=== PATIENT | male | born 1975 | race Caucasian/White ===

== ENCOUNTER 2017-07-06 18:22 | Emergency (ER) | payer MEDICAID, OTHER ==
[2017-07-06 18:40] VITALS: BP 154/79
[2017-07-06] MEDS ORDERED: ASPIRIN 81 MG TABLET, CHEWABLE PO ONE (19:53)
--- NOTE | 2017-07-06 19:54 | ER Document Report ---
ED Medical Screen (RME) - General Chief Complaint: Chest Pain Stated Complaint: CHEST PAIN Time Seen by Provider: 07/06/17 19:43 Notes: 42-year-old male here with complaints of midsternal chest pain nonradiating that has been ongoing episodically over the past 6 months with associated lightheadedness and diaphoresis. He is here today because it started approximately 12 hours ago while he was sitting down and it has been constant since then. He reports that these episodes usually do not last as long as it has today and this is why he is here. He denies shortness of breath. He has not followed up with his primary care physician regarding these symptoms. EXAM Clear to auscultation bilaterally Regular rate and rhythm TRAVEL OUTSIDE OF THE [place] IN LAST 30 DAYS: No - Related Data Allergies/Adverse Reactions: No Known Allergies Allergy (Verified 07/06/17 18:23) Past Medical History - Social History Frequency of alcohol use: None - Past Medical History Cardiac Medical History: Reports: Hx Hypertension Renal/ Medical History: Denies: Hx Peritoneal Dialysis Physical Exam - Vital signs Vitals: Temp Pulse Resp BP Pulse Ox 99.0 F 83 18 154/79 H 97 07/06/17 18:38 07/06/17 18:38 07/06/17 18:38 07/06/17 18:38 07/06/17 18:38 Course - Vital Signs Vital signs: Temp Pulse Resp BP Pulse Ox 99.0 F 83 18 154/79 H 97 07/06/17 18:38 07/06/17 18:38 07/06/17 18:38 07/06/17 18:38 07/06/17 18:38
--- NOTE | 2017-07-06 20:39 | RADIOLOGY REPORT (SQ) ---
EXAM DESCRIPTION: CHEST PA/LAT COMPLETED DATE/TIME: 07/06/2017 8:27 pm REASON FOR STUDY: CP COMPARISON: 11/26/2015 EXAM PARAMETERS: NUMBER OF VIEWS: two views TECHNIQUE: Digital Frontal and Lateral radiographic views of the chest acquired. RADIATION DOSE: NA LIMITATIONS: none FINDINGS: LUNGS AND PLEURA: No opacities, masses or pneumothorax. No pleural effusion. MEDIASTINUM AND HILAR STRUCTURES: No masses or contour abnormalities. HEART AND VASCULAR STRUCTURES: Heart normal size. No evidence for failure. BONES: No acute findings. HARDWARE: None in the chest. OTHER: No other significant finding. IMPRESSION: NO SIGNIFICANT RADIOGRAPHIC FINDING IN THE CHEST. TECHNICAL DOCUMENTATION: JOB ID: [id number] [employer]- All Rights Reserved
[2017-07-06 20:45] LABS: ANION GAP 16 (5-19); BLOOD UREA NITROGEN 13 mg/dL (7-20); CALCIUM 9.1 mg/dL (8.4-10.2); CARBON DIOXIDE 24 mmol/L (22-30); CHLORIDE 104 mmol/L (98-107); CREATININE RESULT 0.66 mg/dL (0.52-1.25); GLUCOSE 127 mg/dL (75-110); POTASSIUM 4.6 mmol/L (3.6-5.0); SODIUM 143.7 mmol/L (137-145)
[2017-07-06 20:58] LABS: APPEARANCE,URINE CLEAR; BILIRUBIN,URINE NEGATIVE (NEGATIVE); GLUCOSE, URINE NEGATIVE (NEGATIVE); KETONES,URINE NEGATIVE (NEGATIVE); LEUKOCYTE ESTERASE,URINE NEGATIVE (NEGATIVE); NITRITE,URINE NEGATIVE (NEGATIVE); PROTEIN,URINE NEGATIVE (NEGATIVE); URINE SPECIFIC GRAVITY 1.006; UROBILINOGEN,URINE NEGATIVE mg/dL (<2.0)
--- NOTE | 2017-07-06 21:49 | EKG REPORT ---
SEVERITY:- NORMAL ECG - SINUS RHYTHM : Confirmed by: Orlando Davis 06-Jul-2017 21:48:34
[2017-07-06 22:39] LABS: ABSOLUTE EOSINOPHILS # (AUTO) 0.2 10^3/uL (0.0-0.6); ABSOLUTE LYMPHOCYTES (AUTO) 3.9 10^3/uL (0.5-4.7); ABSOLUTE MONOCYTES (AUTO) 0.8 10^3/uL (0.1-1.4); BASOPHILS % (AUTO) 0.2 % (0-2); EOSINOPHILS % (AUTO) 2.2 % (0-6); HEMOGLOBIN 12.9 g/dL (13.5-17.0); HGB HCT DIFFERENCE -0.3; LYMPHOCYTES % (AUTO) 39.5 % (13-45); MEAN CORPUSCULAR HEMOGLOBIN 25.8 pg (27.0-33.4); MEAN CORPUSCULAR HGB CONC 33.1 g/dL (32.0-36.0); MEAN CORPUSCULAR VOLUME 78 fl (80-97); MONOCYTES % (AUTO) 7.7 % (3-13); RED BLOOD COUNT 5.01 10^6/uL (4.35-5.55); RED CELL DISTRIBUTION WIDTH 14.9 % (11.5-14.0); SEGMENTED NEUTROPHILS % (AUTO) 50.4 % (42-78); WHITE BLOOD COUNT 9.9 10^3/uL (4.0-10.5)
--- NOTE | 2017-07-06 22:56 | ER Document Report ---
ED General - General Chief Complaint: Chest Pain Stated Complaint: CHEST PAIN Time Seen by Provider: 07/06/17 19:43 TRAVEL OUTSIDE OF THE [place] IN LAST 30 DAYS: No - HPI Patient complains to provider of: Intermittent chest pain intermittent dizziness Notes: Patient coming in today complains intermittent chest pain intermittent dizziness. Patient states more concerned about dizziness. Patient states is been ongoing for many months. States symptoms are worse starting from earlier this morning. Patient states he thinks his dizziness is intermittent chest pains prior related to anxiety states also having a lot of stress at work. Upon my evaluation patient resting comfortably watching TV states that his symptoms basically resolved. Patient states chest pain throughout the whole chest and shortness of breath or any other associated etiologies. Patient states that his dizziness sometimes associated with ringing in his ear. Patient did have a stress test in October 2015 that was negative. Patient states since that time has not followed up with cardiology states he does have high blood pressure compliant with medications patient states he knows that he is obese recently joined a gym and has started working out. Denies fevers chills nausea vomiting abdominal pain. Denies any recent trauma or travel. - Related Data Allergies/Adverse Reactions: No Known Allergies Allergy (Verified 07/06/17 18:23) Past Medical History - Social History Smoking Status: Never Smoker Frequency of alcohol use: None Family History: Reviewed & Not Pertinent Patient has suicidal ideation: No Patient has homicidal ideation: No - Past Medical History Cardiac Medical History: Reports: Hx Hypertension Renal/ Medical History: Denies: Hx Peritoneal Dialysis Review of Systems - Review of Systems Constitutional: No symptoms reported EENT: No symptoms reported Cardiovascular: Chest pain, Dizziness Respiratory: No symptoms reported Gastrointestinal: No symptoms reported Genitourinary: No symptoms reported Male Genitourinary: No symptoms reported Musculoskeletal: No symptoms reported Skin: No symptoms reported Hematologic/Lymphatic: No symptoms reported Neurological/Psychological: No symptoms reported -: Yes All other systems reviewed and negative Physical Exam - Vital signs Vitals: Temp Pulse Resp BP Pulse Ox 99.0 F 83 18 154/79 H 97 07/06/17 18:38 07/06/17 18:38 07/06/17 18:38 07/06/17 18:38 07/06/17 18:38 Interpretation: Normal - General General appearance: Appears well, Alert - HEENT Head: Normocephalic, Atraumatic Eyes: Normal Conjunctiva: Normal Cornea: Normal Extraocular movements intact: Yes Eyelashes: Normal Pupils: PERRL Anterior chamber: Normal Fundascopic: Normal Ears: Normal External canal: Normal Tympanic membrane: Normal Pharynx: Normal Neck: Normal - Respiratory Respiratory status: No respiratory distress Chest status: Nontender Breath sounds: Normal Chest palpation: Normal - Cardiovascular Rhythm: Regular Heart sounds: Normal auscultation Murmur: No - Abdominal Inspection: Normal Distension: No distension Bowel sounds: Normal Tenderness: Nontender Organomegaly: No organomegaly - Back Back: Normal, Nontender - Extremities General upper extremity: Normal inspection, Nontender, Normal color, Normal ROM , Normal temperature General lower extremity: Normal inspection, Nontender, Normal color, Normal ROM , Normal temperature, Normal weight bearing. No: Subha's sign - Neurological Neuro grossly intact: Yes Cognition: Normal Orientation: AAOx4 [place] Coma Scale Eye Opening: Spontaneous [place] Coma Scale Verbal: Oriented [place] Coma Scale Motor: Obeys Commands [place] Coma Scale Total: 15 Speech: Normal Motor strength normal: LUE, RUE, LLE, RLE Sensory: Normal - Psychological Associated symptoms: Normal affect, Normal mood - Skin Skin Temperature: Warm Skin Moisture: Dry Skin Color: Normal Course - Re-evaluation Re-evalutation: 07/06/17 23:06 The patient has atypical chest pain as the patient's chest pain is not suggestive of pulmonary embolus, cardiac ischemia, aortic dissection, or other serious etiology. Given the extremely low risk of these diagnoses further testing and evaluation for these possibilities does not appear to be indicated at this time. The patient has been instructed to return if the symptoms worsen or change in any way. Unclear etiology for underlying dizziness. Ringing here could be underlying inflammation of the anterior. We will start the patient on Antivert encouraged patient follow-up with PCP also. Patient to follow-up dictionary editor provided. - Vital Signs Vital signs: Temp Pulse Resp BP Pulse Ox 99.0 F 83 19 154/79 H 97 07/06/17 18:38 07/06/17 18:38 07/06/17 22:21 07/06/17 18:38 07/06/17 22:21 - Laboratory Result Diagrams: 07/06/17 22:23 07/06/17 20:00 Laboratory results interpreted by me: 07/06/17 07/06/17 20:00 22:23 Hgb 12.9 L MCV 78 L MCH 25.8 L RDW 14.9 H Glucose 127 H Discharge - Discharge Clinical Impression: Chest pain of uncertain etiology, Dizziness Condition: Good Disposition: HOME, SELF-CARE Instructions: Chest Pain of Unclear Cause ([facility]), Dizziness ([facility]), Meclizine ( [facility]) Additional Instructions: Your physical examination tonight does not reveal any critical pathology. Cannot explain your dizziness or this intermittent chest pain. Your most recent stress test is negative. Your lab work and EKG here are negative as well. We will start you on Antivert to see if this would help out with her dizziness I would recommend following up with your primary care physician in 2- 3 weeks. Keep a record of these episodes and the events occurring around you when this happens. Also upon Your last visit and admission here to the hospital dictionary editor did recommend to establish yourself with a dictionary editor I will give you Dr. Clark's information. Return to the ER if any symptoms worsen. Prescriptions: Meclizine HCl [Antivert 25 mg Tablet] 25 mg PO TID PRN #21 tablet PRN Reason: Forms: Return to Work Referrals: JUDY WALLIS MD [ACTIVE STAFF] - Follow up as needed
== END 2017-07-06 23:04 | disposition home or self-care (01) ==
LOC: ER 18:22
DX: R07.9 Chest pain, unspecified (principal); R42 Dizziness and giddiness
CPT/HCPCS: 36415; 71020; 80048; 81001; 84484; 85025; 93005; 93010; 99285

== ENCOUNTER 2017-10-25 12:10 | Observation (INO) | payer SELFPAY ==
--- NOTE | 2017-10-25 14:23 | ER Document Report ---
ED Medical Screen (RME) <ALTON ROMO - Last Filed: 10/25/17 16:48> - General TRAVEL OUTSIDE OF THE [place] IN LAST 30 DAYS: No <SAVANNAH SANCHEZ - Last Filed: 10/25/17 19:49> - General Chief Complaint: Neck Pain >24hrs old Stated Complaint: DIZZINESS Time Seen by Provider: 10/25/17 14:05 Notes: 42-year-old male reports high blood pressure and pain in his neck. Radiates up into his neck. Has been told he has prediabetes. Was on some blood pressure meshing occasion but has recently stopped it. I have greeted and performed a rapid initial assessment of this patient. A comprehensive ED assessment and evaluation of the patient, analysis of test results and completion of the medical decision making process will be conducted by additional ED providers. (SAVANNAH SANCHEZ) - Related Data Allergies/Adverse Reactions: No Known Allergies Allergy (Verified 10/25/17 12:12) Past Medical History - Social History Chew tobacco use (# tins/day): Yes Frequency of alcohol use: None Drug Abuse: None - Past Medical History Cardiac Medical History: Reports: Hx Hypertension Renal/ Medical History: Denies: Hx Peritoneal Dialysis <SAVANNAH SANCHEZ - Last Filed: 10/25/17 19:49> Physical Exam - Vital signs Interpretation: Normal - General General appearance: Appears well, Alert - HEENT Head: Normocephalic, Atraumatic Eyes: Normal Pupils: PERRL - Respiratory Respiratory status: No respiratory distress Chest status: Nontender Breath sounds: Normal Chest palpation: Normal - Cardiovascular Rhythm: Regular Heart sounds: Normal auscultation Murmur: No - Abdominal Inspection: Normal Distension: No distension Bowel sounds: Normal Tenderness: Nontender Organomegaly: No organomegaly - Back Back: Normal, Nontender - Extremities General upper extremity: Normal inspection, Nontender, Normal color, Normal ROM , Normal temperature General lower extremity: Normal inspection, Nontender, Normal color, Normal ROM , Normal temperature, Normal weight bearing. No: Subha's sign - Neurological Neuro grossly intact: Yes Cognition: Normal Orientation: AAOx4 [place] Coma Scale Eye Opening: Spontaneous [place] Coma Scale Verbal: Oriented [place] Coma Scale Motor: Obeys Commands [place] Coma Scale Total: 15 Speech: Normal Motor strength normal: LUE, RUE, LLE, RLE Sensory: Normal - Psychological Associated symptoms: Normal affect, Normal mood - Skin Skin Temperature: Warm Skin Moisture: Dry Skin Color: Normal <SAVANNAH SANCHEZ - Last Filed: 10/25/17 19:49> - Vital signs Vitals: Temp Pulse Resp BP Pulse Ox 98.7 F 69 18 160/93 H 98 10/25/17 12:23 10/25/17 12:23 10/25/17 12:23 10/25/17 12:23 10/25/17 12:23 Course - Laboratory Result Diagrams: 10/25/17 14:35 10/25/17 14:35 <ALTON ROMO - Last Filed: 10/25/17 16:48> - Laboratory Result Diagrams: 10/25/17 14:35 10/25/17 14:35 <SAVANNAH SANCHEZ - Last Filed: 10/25/17 19:49> - Vital Signs Vital signs: Temp Pulse Resp BP Pulse Ox 98.0 F 94 18 150/88 H 99 10/25/17 16:47 10/25/17 18:44 10/25/17 12:25 10/25/17 18:44 10/25/17 16:47 - Laboratory Laboratory results interpreted by me: 10/25/17 10/25/17 14:35 14:35 MCV 78 L MCH 25.1 L RDW 15.2 H Total Protein 8.6 H Doctor's Discharge <ALTON ROMO - Last Filed: 10/25/17 16:48> <SAVANNAH SANCHEZ - Last Filed: 10/25/17 19:49> - Discharge Clinical Impression: Near syncope Condition: Good Disposition: ADMITTED OBSERVATION
[2017-10-25 15:07] LABS: ABSOLUTE EOSINOPHILS # (AUTO) 0.1 10^3/uL (0.0-0.6); ABSOLUTE LYMPHOCYTES (AUTO) 2.2 10^3/uL (0.5-4.7); ABSOLUTE MONOCYTES (AUTO) 0.4 10^3/uL (0.1-1.4); ABSOLUTE NEUT (AUTO) 6.3 10^3/uL (1.7-8.2); BASOPHILS % (AUTO) 0.2 % (0-2); EOSINOPHILS % (AUTO) 0.9 % (0-6); HEMATOCRIT 41.9 % (37.9-51.0); HEMOGLOBIN 13.5 g/dL (13.5-17.0); LYMPHOCYTES % (AUTO) 24.5 % (13-45); MEAN CORPUSCULAR HEMOGLOBIN 25.1 pg (27.0-33.4); MEAN CORPUSCULAR HGB CONC 32.2 g/dL (32.0-36.0); MEAN CORPUSCULAR VOLUME 78 fl (80-97); MONOCYTES % (AUTO) 4.8 % (3-13); PLATELET COUNT 328 10^3/uL (150-450); RED BLOOD COUNT 5.38 10^6/uL (4.35-5.55); RED CELL DISTRIBUTION WIDTH 15.2 % (11.5-14.0); SEGMENTED NEUTROPHILS % (AUTO) 69.6 % (42-78); TOTAL CELLS COUNTED % (AUTO) 100 %
[2017-10-25 15:15] LABS: COLOR,URINE STRAW
[2017-10-25 15:16] LABS: APPEARANCE,URINE CLEAR; BILIRUBIN,URINE NEGATIVE (NEGATIVE); GLUCOSE, URINE NEGATIVE (NEGATIVE); KETONES,URINE NEGATIVE (NEGATIVE); PROTEIN,URINE NEGATIVE (NEGATIVE); URINE SPECIFIC GRAVITY 1.016
[2017-10-25 15:17] LABS: LEUKOCYTE ESTERASE,URINE NEGATIVE (NEGATIVE); NITRITE,URINE NEGATIVE (NEGATIVE); UROBILINOGEN,URINE NEGATIVE mg/dL (<2.0)
[2017-10-25 15:31] LABS: ALANINE AMINOTRANSFERASE 41 U/L (21-72); ALBUMIN 4.5 g/dL (3.5-5.0); ALKALINE PHOSPHATASE 54 U/L (38-126); ANION GAP 10 (5-19); ASPARTATE AMINO TRANSFERASE 27 U/L (17-59); BILIRUBIN,DIRECT 0.3 mg/dL (0.0-0.4); BILIRUBIN,TOTAL 0.4 mg/dL (0.2-1.3); BLOOD UREA NITROGEN 11 mg/dL (7-20); CALCIUM 9.8 mg/dL (8.4-10.2); CARBON DIOXIDE 30 mmol/L (22-30); CHLORIDE 105 mmol/L (98-107); GLUCOSE 82 mg/dL (75-110); POTASSIUM 4.6 mmol/L (3.6-5.0); SODIUM 144.7 mmol/L (137-145); TOTAL PROTEIN 8.6 g/dL (6.3-8.2)
[2017-10-25 15:43] LABS: NT PRO BNP 67 pg/mL (<125)
[2017-10-25 15:44] LABS: TROPONIN I < 0.012 ng/mL
--- NOTE | 2017-10-25 17:18 | ER Document Report ---
ED General - General Chief Complaint: Neck Pain >24hrs old Stated Complaint: DIZZINESS Time Seen by Provider: 10/25/17 14:05 Mode of Arrival: Ambulatory Information source: Patient Notes: 42-year-old male with a history of hypertension presents with complaint of dizziness. Patient states that for the last 3 months he has been experiencing intermittent episodes of dizziness that he describes as feeling like he may faint. Today he states that he "feels off" and had more episodes than usual. Patient denies any associated chest pain, shortness of breath, diaphoresis, nausea, abdominal pain, back pain. He does complain of some numbness along the right side of his neck. He denies any injury to his neck. He denies being seen for this previously. He did undergo a stress test for his job 9 years ago which he reports to be normal. Patient also reports that he was taken off of his blood pressure medication at the end of 2016 by his primary care physician. He states since that time he has had these episodes of feeling lightheaded. He denies any history of IA, stroke. He denies any weakness, slurred speech, inability to ambulate. He denies any smoking, alcohol or drug use. TRAVEL OUTSIDE OF THE [place] IN LAST 30 DAYS: No - HPI Onset: Other - Intermittently for 3 months Onset/Duration: Gradual, Intermittent Quality of pain: No pain Severity: None Pain Level: Denies Associated symptoms: denies: Chest pain, Fever, Headache, Nausea, Vomiting, Sweating, Weakness Exacerbated by: Denies. denies: Supine, Sitting, Standing, Movement, Walking, Deep breathing Relieved by: Denies Similar symptoms previously: Yes Recently seen / treated by doctor: No - Related Data Allergies/Adverse Reactions: No Known Allergies Allergy (Verified 10/25/17 12:12) Past Medical History - General Information source: Patient - Social History Smoking Status: Never Smoker Chew tobacco use (# tins/day): Yes Frequency of alcohol use: None Drug Abuse: None Lives with: Family Family History: Reviewed & Not Pertinent Patient has suicidal ideation: No Patient has homicidal ideation: No - Past Medical History Cardiac Medical History: Reports: Hx Hypertension Renal/ Medical History: Denies: Hx Peritoneal Dialysis Review of Systems - Review of Systems Constitutional: See HPI. denies: Fever, Malaise, Weakness EENT: denies: Eye pain, Eye discharge, Blurred vision, Tearing, Double vision, Sinus pressure Cardiovascular: Lightheaded. denies: Chest pain, Palpitations, Heart racing Respiratory: denies: Cough Gastrointestinal: denies: Abdomen distended Genitourinary: denies: Dysuria Musculoskeletal: Other - right sided neck numbness Skin: No symptoms reported Neurological/Psychological: denies: Confusion, Sensory change, Loss of power, Lost consciousness, Headaches Physical Exam - Vital signs Vitals: Temp Pulse Resp BP Pulse Ox 98.7 F 69 18 160/93 H 98 10/25/17 12:23 10/25/17 12:23 10/25/17 12:23 10/25/17 12:23 10/25/17 12:23 Interpretation: Normal, Hypertensive - General General appearance: Appears well, Alert In distress: None - HEENT Head: Normocephalic, Atraumatic Eyes: Normal Extraocular movements intact: Yes Pupils: PERRL Pharynx: Normal - Respiratory Respiratory status: No respiratory distress Chest status: Nontender Breath sounds: Normal Chest palpation: Normal - Cardiovascular Rhythm: Regular Heart sounds: Normal auscultation Murmur: No Pulses: Normal: Radial, Dorsalis pedis - Abdominal Inspection: Normal Distension: No distension Bowel sounds: Normal Tenderness: Nontender Organomegaly: No organomegaly - Back Back: Normal, Nontender - Neurological Neuro grossly intact: Yes Cognition: Normal Orientation: AAOx4 Hattie Coma Scale Eye Opening: Spontaneous [place] Coma Scale Verbal: Oriented [place] Coma Scale Motor: Obeys Commands Hattie Coma Scale Total: 15 Speech: Normal Cranial nerves: Normal Cerebellar coordination: Normal. No: Gait ataxia, Heel-thibodeaux, Finger-nose rhombey, Rapid alt. movements, Truncal ataxia Motor strength normal: LUE, RUE, LLE, RLE Additional motor exam normals: Equal bridge attacher, Other - Patient ambulated independently and without difficulty. He was able to perform heel to toe without difficulty. Babinski reflex: Normal (flexor plantar) Sensory: Normal Course - Re-evaluation Re-evalutation: 10/25/17 17:44 Spoke to patient regarding admission for multiple episodes of near syncope. He is agreeable. Hospitalist has accepted. hospitalist is requesting chest x-ray and orthostatic vital signs. 10/26/17 00:11 42-year-old male with a history of hypertension presents with complaint of multiple episodes of near syncope. On arrival vitals were reviewed. Patient is mildly hypertensive. He does not appear toxic or dehydrated. He is in no acute distress. Patient has a normal physical and neurologic exam and is able to ambulate without difficulty. He denies any associated chest pain, shortness of breath, diaphoresis. Patient's neck numbness is not reproducible on my exam. Because of the patient's history of obesity and hypertension admission was recommended for further workup near syncope. Patient is agreeable to admission. Laboratory 10/25/17 10/25/17 10/25/17 14:35 14:35 14:35 WBC 9.0 RBC 5.38 Hgb 13.5 Hct 41.9 MCV 78 L MCH 25.1 L MCHC 32.2 RDW 15.2 H Plt Count 328 Seg Neutrophils % 69.6 Lymphocytes % 24.5 Monocytes % 4.8 Eosinophils % 0.9 Basophils % 0.2 Absolute Neutrophils 6.3 Absolute Lymphocytes 2.2 Absolute Monocytes 0.4 Absolute Eosinophils 0.1 Absolute Basophils 0.0 Sodium 144.7 Potassium 4.6 Chloride 105 Carbon Dioxide 30 Anion Gap 10 BUN 11 Creatinine 0.66 Est GFR ( Amer) > 60 Est GFR (Non-Af Amer) > 60 Glucose 82 Hemoglobin A1c % 5.7 Calcium 9.8 Magnesium Total Bilirubin 0.4 Direct Bilirubin 0.3 Neonat Total Bilirubin Not Reportable Neonat Direct Bilirubin Not Reportable Neonat Indirect Bili Not Reportable AST 27 ALT 41 Alkaline Phosphatase 54 CK-MB (CK-2) Troponin I NT-Pro-B Natriuret Pep Total Protein 8.6 H Albumin 4.5 Urine Color Urine Appearance Urine pH Ur Specific [place] Urine Protein Urine Glucose (UA) Urine Ketones Urine Blood Urine Nitrite Urine Bilirubin Urine Urobilinogen Ur Leukocyte Esterase Urine WBC (Auto) Urine RBC (Auto) Squamous Epi Cells Auto Urine Mucus (Auto) Urine Ascorbic Acid 10/25/17 10/25/17 10/25/17 14:35 14:35 14:35 WBC RBC Hgb Hct MCV MCH MCHC RDW Plt Count Seg Neutrophils % Lymphocytes % Monocytes % Eosinophils % Basophils % Absolute Neutrophils Absolute Lymphocytes Absolute Monocytes Absolute Eosinophils Absolute Basophils Sodium Potassium Chloride Carbon Dioxide Anion Gap BUN Creatinine Est GFR ( Amer) Est GFR (Non-Af Amer) Glucose Hemoglobin A1c % Calcium Magnesium 1.8 Total Bilirubin Direct Bilirubin Neonat Total Bilirubin Neonat Direct Bilirubin Neonat Indirect Bili AST ALT Alkaline Phosphatase CK-MB (CK-2) Troponin I < 0.012 NT-Pro-B Natriuret Pep 67 Total Protein Albumin Urine Color STRAW Urine Appearance CLEAR Urine pH 8.0 Ur Specific [place] 1.016 Urine Protein NEGATIVE Urine Glucose (UA) NEGATIVE Urine Ketones NEGATIVE Urine Blood NEGATIVE Urine Nitrite NEGATIVE Urine Bilirubin NEGATIVE Urine Urobilinogen NEGATIVE Ur Leukocyte Esterase NEGATIVE Urine WBC (Auto) 1 Urine RBC (Auto) 1 Squamous Epi Cells Auto <1 Urine Mucus (Auto) RARE Urine Ascorbic Acid NEGATIVE 10/25/17 20:30 WBC RBC Hgb Hct MCV MCH MCHC RDW Plt Count Seg Neutrophils % Lymphocytes % Monocytes % Eosinophils % Basophils % Absolute Neutrophils Absolute Lymphocytes Absolute Monocytes Absolute Eosinophils Absolute Basophils Sodium Potassium Chloride Carbon Dioxide Anion Gap BUN Creatinine Est GFR ( Amer) Est GFR (Non-Af Amer) Glucose Hemoglobin A1c % Calcium Magnesium Total Bilirubin Direct Bilirubin Neonat Total Bilirubin Neonat Direct Bilirubin Neonat Indirect Bili AST ALT Alkaline Phosphatase CK-MB (CK-2) 0.47 Troponin I < 0.012 NT-Pro-B Natriuret Pep Total Protein Albumin Urine Color Urine Appearance Urine pH Ur Specific [place] Urine Protein Urine Glucose (UA) Urine Ketones Urine Blood Urine Nitrite Urine Bilirubin Urine Urobilinogen Ur Leukocyte Esterase Urine WBC (Auto) Urine RBC (Auto) Squamous Epi Cells Auto Urine Mucus (Auto) Urine Ascorbic Acid Chest X-Ray 10/25/17 17:40 IMPRESSION: NO SIGNIFICANT RADIOGRAPHIC FINDING IN THE CHEST. - Vital Signs Vital signs: Temp Pulse Resp BP Pulse Ox 98.5 F 66 18 111/71 98 10/25/17 21:04 10/25/17 21:04 10/25/17 21:04 10/25/17 21:04 10/25/17 21:04 - Laboratory Result Diagrams: 10/25/17 14:35 10/25/17 14:35 Laboratory results interpreted by me: 10/25/17 10/25/17 14:35 14:35 MCV 78 L MCH 25.1 L RDW 15.2 H Total Protein 8.6 H - Diagnostic Test Radiology reviewed: Image reviewed - EKG Interpretation by Nh EKG shows normal: Sinus rhythm Rate: Normal Rhythm: NSR When compared to previous EKG there are: No significant change Discharge - Discharge Clinical Impression: Near syncope Condition: Good Disposition: ADMITTED OBSERVATION Admitting Provider: Hospitalist Unit Admitted: IMCU
--- NOTE | 2017-10-25 18:13 | RADIOLOGY REPORT (SQ) ---
EXAM DESCRIPTION: CHEST PA/LAT COMPLETED DATE/TIME: 10/25/2017 6:05 pm REASON FOR STUDY: near syncope COMPARISON: 07/06/2017 EXAM PARAMETERS: NUMBER OF VIEWS: two views TECHNIQUE: Digital Frontal and Lateral radiographic views of the chest acquired. RADIATION DOSE: NA LIMITATIONS: none FINDINGS: LUNGS AND PLEURA: No opacities, masses or pneumothorax. No pleural effusion. MEDIASTINUM AND HILAR STRUCTURES: No masses or contour abnormalities. HEART AND VASCULAR STRUCTURES: Heart normal size. No evidence for failure. BONES: No acute findings. HARDWARE: None in the chest. OTHER: No other significant finding. IMPRESSION: NO SIGNIFICANT RADIOGRAPHIC FINDING IN THE CHEST. TECHNICAL DOCUMENTATION: JOB ID: [id number] [employer]- All Rights Reserved Reading location - IP/workstation name: [email or web address]
--- NOTE | 2017-10-25 18:17 | EKG REPORT ---
SEVERITY:- BORDERLINE ECG - SINUS RHYTHM PROBABLE LEFT ATRIAL ABNORMALITY : Confirmed by: Aki Chun MD 25-Oct-2017 18:16:05
[2017-10-25] MEDS ORDERED: DEXTROSE 50%-WATER 25 GM/50 ML DISP.SYRIN IV PRN ×2 (18:55)
[2017-10-25] MEDS ORDERED: GLUCAGON,HUMAN RECOMB 1 MG INJ SUBCUT PRN (18:55)
[2017-10-25] MEDS ORDERED: ACETAMINOPHEN 325 MG TABLET PO PRN (18:55)
[2017-10-25] MEDS ORDERED: DEXTROSE 40% GEL 15 GM TUBE PO PRN ×2 (18:55)
--- NOTE | 2017-10-25 19:19 | PDOC H&P ---
History of Present Illness Admission Date/PCP: 10/25/17 18:20 LOBITO ROBLES MD History of Present Illness: JONNY LI is a 42 year old male who is obese, his past medical history includes hypertension which improved with diet and exercise and he was taken off his blood pressure medications approximately a year ago. He presents to the ER today complaining of presyncope for the past few weeks. Denies chest pain, or syncope. Home meds: Steroid cream for psoriasis Melatonin Tylenol prn Past Medical History Cardiac Medical History: Reports: Hypertension Social History Lives with: Family Smoking Status: Never Smoker Frequency of Alcohol Use: Rare Hx Recreational Drug Use: No Hx Prescription Drug Abuse: No Family History Family History: CAD Parental Family History Reviewed: Yes Children Family History Reviewed: Yes Sibling(s) Family History Reviewed.: Yes Medication/Allergy Home Medications: No Home Medications 10/25/17 Allergies/Adverse Reactions: No Known Allergies Allergy (Verified 10/25/17 12:12) Review of Systems Constitutional: ABSENT: fever(s) Eyes: ABSENT: visual disturbances Ears: ABSENT: hearing changes Nose, Mouth, and Throat: ABSENT: sore throat Cardiovascular: ABSENT: dyspnea on exertion, edema, orthropnea, palpitations Gastrointestinal: ABSENT: heartburn Genitourinary: ABSENT: dysuria Musculoskeletal: ABSENT: joint swelling Neurological: ABSENT: focal weakness Psychiatric: ABSENT: hallucinations Endocrine: ABSENT: heat intolerance Physical Exam Vital Signs: Temp Pulse Resp BP Pulse Ox 98.0 F 94 18 150/88 H 99 10/25/17 16:47 10/25/17 18:44 10/25/17 12:25 10/25/17 18:44 10/25/17 16:47 General appearance: PRESENT: no acute distress, morbidly obese Head exam: PRESENT: atraumatic, normocephalic Ear exam: PRESENT: normal external ear exam Mouth exam: PRESENT: moist, neck supple Neck exam: ABSENT: tenderness, tracheal deviation Respiratory exam: PRESENT: clear to auscultation oscar, unlabored. ABSENT: wheezes Cardiovascular exam: PRESENT: RRR GI/Abdominal exam: PRESENT: normal bowel sounds, soft. ABSENT: tenderness Rectal exam: PRESENT: deferred Neurological exam: PRESENT: alert, awake, oriented to person, oriented to place , oriented to time Psychiatric exam: PRESENT: normal mood Results Impressions: Chest X-Ray 10/25/17 17:40 IMPRESSION: NO SIGNIFICANT RADIOGRAPHIC FINDING IN THE CHEST. Assessment & Plan - Diagnosis (1) Near syncope Is this a current diagnosis for this admission?: Yes Plan: Telemetry, cardiac enzymes stress test in the am, echocardiogram. orthostatic BP normal (2) Hypertension Qualifiers: Hypertension type: essential hypertension Qualified Code(s): I10 - Essential (primary) hypertension Is this a current diagnosis for this admission?: Yes Plan: Monitor, start antihypertensives in am (3) Morbid obesity Is this a current diagnosis for this admission?: Yes - Time Time Spent: 30 to 50 Minutes
[2017-10-25 21:12] LABS: CREATINE KINASE MB 0.47 ng/mL (<4.55)
[2017-10-25 21:19] LABS: TROPONIN I < 0.012 ng/mL
[2017-10-26 03:28] LABS: CREATINE KINASE MB 0.45 ng/mL (<4.55)
[2017-10-26 03:38] LABS: TROPONIN I < 0.012 ng/mL
[2017-10-26 10:42] LABS: CHOLESTEROL 202.44 mg/dL (0-200); PHOSPHORUS 3.9 mg/dL (2.5-4.5); TRIGLYCERIDES 124 mg/dL (<150)
[2017-10-26 10:53] LABS: DIRECT LDL 117 mg/dL (<100); TROPONIN I < 0.012 ng/mL
[2017-10-26 12:55] LABS: URINE AMPHETAMINES SCREEN NEGATIVE; URINE BARBITURATES SCREEN NEGATIVE; URINE BENZODIAZEPINES SCREEN NEGATIVE; URINE COCAINE SCREEN NEGATIVE; URINE MARIJUANA (THC) SCREEN NEGATIVE; URINE METHADONE SCREEN NEGATIVE; URINE PHENCYCLIDINE SCREEN NEGATIVE
[2017-10-26 16:53] VITALS: BP 123/77
--- NOTE | 2017-10-26 17:46 | XCELERA REPORT ---
[address] [address] Transthoracic Echocardiogram Report Name: JONNY LI Age: 42 yrs Gender: Male : 1975 Patient Status: Inpatient Patient Location: [address] [place] [address] Study Date: 10/26/2017 12:36 PM Height: 71 in Weight: 359 lb BSA: 2.7 m2 Procedure: A complete two-dimensional transthoracic echocardiogram was performed (2D, M-mode, spectral and color flow Doppler). The study was technically difficult with many images being suboptimal in quality. Reason For Study: presyncope Ordering Physician: TOMMY HELM Performed By: Roxi Milligan Interpretation Summary The left ventricular ejection fraction is normal. There is borderline concentric left ventricular hypertrophy. The left ventricle is grossly normal size. Doppler measurements suggest normal left ventricular diastolic function Wall motion cannot be accurately commented on, but no definite regional wall motion abnormalities noted. Borderline right ventricular enlargement. The right ventricular systolic function is normal. The left atrium is mildly dilated. The right atrium is normal in size There is a trace amount of mitral regurgitation There is no mitral valve stenosis. No aortic regurgitation is present. There is no aortic valve stenosis There is no tricuspid stenosis. No tricuspid regurgitation. The aortic root is not well visualized but is probably normal size. The inferior vena cava was not well visualized There is no pericardial effusion. MMode/2D Measurements & Calculations RVDd: 3.0 cm LVIDd: 5.7 cmFS: 33.0 % Ao root diam: 3.5 cm IVSd: 0.98 cm LVIDs: 3.8 cmEDV(Teich): 162.2 ml LVPWd: 1.0 cmESV(Teich): 63.5 ml Ao root area: 9.8 cm2 EF(Teich): 60.9 % LA dimension: 4.1 cm LVOT diam: 2.4 cm LVOT area: 4.5 cm2 Doppler Measurements & Calculations MV E max oj: MV P1/2t max oj: Ao V2 max: LV V1 max P.3 cm/sec 84.3 cm/sec 156.4 cm/sec 4.2 mmHg MV A max oj: MV P1/2t: 71.2 msec Ao max PG: LV V1 max: 69.9 cm/sec MVA(P1/2t): 3.1 cm2 9.8 mmHg 102.8 cm/sec MV E/A: 1.2 MV dec slope: LIZANDRO(V,D): 2.9 cm2 347.1 cm/sec2 PA V2 max: 108.6 cm/sec PA max P.7 mmHg Left Ventricle The left ventricle is grossly normal size. There is borderline concentric left ventricular hypertrophy. The left ventricular ejection fraction is normal. Doppler measurements suggest normal left ventricular diastolic function. Wall motion cannot be accurately commented on, but no definite regional wall motion abnormalities noted. Right Ventricle Borderline right ventricular enlargement. There is normal right ventricular wall thickness. The right ventricular systolic function is normal. Atria The right atrium is normal in size. The left atrium is mildly dilated. Interarterial septum not well visualized and not well dopplered. Cannot comment on ASD/PFO presence. Mitral Valve The mitral valve is grossly normal. There is no mitral valve stenosis. There is a trace amount of mitral regurgitation. Aortic Valve The aortic valve is grossly normal. There is no aortic valve stenosis. No aortic regurgitation is present. Tricuspid Valve The tricuspid valve is not well visualized, but is grossly normal. There is no tricuspid stenosis. No tricuspid regurgitation. Pulmonic Valve The pulmonic valve is not well visualized. Great Vessels The aortic root is not well visualized but is probably normal size. The inferior vena cava was not well visualized. Effusions There is no pericardial effusion. : VOLODYMYR NOVEMBER > Orlando Davis
--- NOTE | 2017-10-26 18:30 | PDOC DISCHARGE SUMMARY ---
General - Admit/Disc Date/PCP Admission Date/Primary Care Provider: 10/25/17 18:20 LOBITO ROBLES MD Discharge Date: 10/26/17 - Discharge Diagnosis (1) Near syncope Is this a current diagnosis for this admission?: Yes Summary: Normal orthostatic BP, normal cardiac enzymes. Echo within normal limits. Stress test as outpatient. Follow up PCP in 1 week (2) Hypertension Is this a current diagnosis for this admission?: Yes Summary: BP acceptable. Instructed to monitor BP at home and follow up with PCP (3) Morbid obesity Is this a current diagnosis for this admission?: Yes Summary: Calorie control and exercise. - Additional Information Resuscitation Status: Full Code Discharge Diet: Cardiac Discharge Activity: Activity As Tolerated Home Medications: No Home Medications 10/25/17 History of Present Illness History of Present Illness: JONNY LI is a 42 year old male who is obese, his past medical history includes hypertension which improved with diet and exercise and he was taken off his blood pressure medications approximately a year ago. He presents to the ER today complaining of presyncope for the past few weeks. Denies chest pain, or syncope. Admits to a lot of stress at work No fever/ chills/cough/ vomiting/diarrhea Home meds: Steroid cream for psoriasis Melatonin Tylenol prn Cardiac enzymes, EKG, echo, orthostatic BP normal. Ok for discharge. Feeling better. Stress test as outpatient. Physical Exam Vital Signs: Temp Pulse Resp BP Pulse Ox 97.5 F 87 16 123/77 98 10/26/17 16:50 10/26/17 16:50 10/26/17 16:50 10/26/17 16:50 10/26/17 16:50 Intake & Output 10/25/17 10/26/17 10/27/17 06:59 06:59 06:59 Intake Total 572 442 Output Total 275 Balance 572 167 Weight 162.84 kg General appearance: PRESENT: no acute distress, morbidly obese Ear exam: PRESENT: normal external ear exam Respiratory exam: PRESENT: clear to auscultation oscar, unlabored Cardiovascular exam: PRESENT: RRR Results Laboratory Results: 10/26/17 10/26/17 09:29 09:29 Phosphorus 3.9 Magnesium 1.8 Triglycerides 124 Cholesterol 202.44 H LDL Cholesterol Direct 117 H VLDL Cholesterol 25.0 HDL Cholesterol 47 TSH 1.31 10/25/17 10/26/17 10/26/17 20:30 02:45 09:29 CK-MB (CK-2) 0.47 0.45 0.50 Troponin I < 0.012 < 0.012 < 0.012 Impressions: Chest X-Ray 10/25/17 17:40 IMPRESSION: NO SIGNIFICANT RADIOGRAPHIC FINDING IN THE CHEST. Qualifiers - * PATEINT BEING DISCHARGED WITH ANY OF THE FOLLOWING DIAGNOSIS?: No Plan Time Spent: Greater than 30 Minutes
== END 2017-10-26 18:55 | disposition home or self-care (01) ==
LOC: ER 12:10 → EH 18:20 → 5 20:35
PROVIDERS: ADMIT Internal Medicine; ATTEND Internal Medicine
DX: R42 Dizziness and giddiness (principal); I10 Essential (primary) hypertension; E66.01 Morbid (severe) obesity due to excess calories
CPT/HCPCS: 93005; 99285; 36415 ×2; 82553 ×2; 83735 ×2; 84100; 84443; 85025; 80053; 81001; 84484 ×2; 80307; 83036 ×2; 80061; 83880; 93306; 71046; 93010; G0378 ×3

== ENCOUNTER 2019-04-22 21:43 | Emergency (ER) | payer SELFPAY ==
[2019-04-22] MEDS ORDERED: ASPIRIN 81 MG TABLET, CHEWABLE PO ONE (22:11)
--- NOTE | 2019-04-22 22:13 | ER Document Report ---
ED Medical Screen (RME) - General Chief Complaint: Chest Pain > 30 Stated Complaint: CHEST PAIN,DIZZINESS Time Seen by Provider: 04/22/19 22:09 Primary Care Provider: LOBITO ROBLES MD [Primary Care Provider] - Follow up as needed Mode of Arrival: Ambulatory Information source: Patient Notes: This 43-year-old male presents emergency department with chest pain since last Sunday. Reports he is getting worse he can hardly sleep last night reports he been sweating. Patient does have a history of high blood pressure but he lost weight when off his meds recently he is gained weight back. He also reports that he has been working out. Reports chest wall was tender to palpate. Patient reports this chest pain is different from pain from working out. Denies history of cardiac disease denies diabetes. EKG sinus rhythm. I have greeted and performed a rapid initial assessment of this patient. A comprehensive ED assessment and evaluation of the patient, analysis of test results and completion of the medical decision making process will be conducted by additional ED providers. Dictation of this chart was performed using voice recognition software; ther efore, there may be some unintended grammatical errors. TRAVEL OUTSIDE OF THE [place] IN LAST 30 DAYS: No - Related Data Allergies/Adverse Reactions: No Known Allergies Allergy (Verified 10/25/17 12:12) Past Medical History - Social History Chew tobacco use (# tins/day): No Frequency of alcohol use: Rare Drug Abuse: Marijuana - Past Medical History Cardiac Medical History: Reports: Hx Hypertension Renal/ Medical History: Denies: Hx Peritoneal Dialysis Psychiatric Medical History: Denies: Hx Depression - Immunizations History of Influenza Vaccine for 04/2017 - 09/2017 Season: Refused Physical Exam - Vital signs Vitals: Temp Pulse Resp BP Pulse Ox 99.1 F 73 16 135/84 H 98 04/22/19 22:01 04/22/19 22:01 04/22/19 22:01 04/22/19 22:01 04/22/19 22:01 Course - Vital Signs Vital signs: Temp Pulse Resp BP Pulse Ox 99.1 F 73 16 135/84 H 98 04/22/19 22:01 04/22/19 22:01 04/22/19 22:01 04/22/19 22:01 04/22/19 22:01 Doctor's Discharge - Discharge Referrals: LOBITO ROBLES MD [Primary Care Provider] - Follow up as needed
[2019-04-22 22:45] LABS: ABSOLUTE EOSINOPHILS # (AUTO) 0.1 10^3/uL (0.0-0.6); ABSOLUTE LYMPHOCYTES (AUTO) 3.1 10^3/uL (0.5-4.7); ABSOLUTE MONOCYTES (AUTO) 0.7 10^3/uL (0.1-1.4); BASOPHILS % (AUTO) 0.3 % (0-2); EOSINOPHILS % (AUTO) 1.7 % (0-6); HEMATOCRIT 40.3 % (37.9-51.0); HEMOGLOBIN 13.2 g/dL (13.5-17.0); LYMPHOCYTES % (AUTO) 34.4 % (13-45); MEAN CORPUSCULAR HEMOGLOBIN 25.6 pg (27.0-33.4); MEAN CORPUSCULAR HGB CONC 32.7 g/dL (32.0-36.0); MEAN CORPUSCULAR VOLUME 78 fl (80-97); MONOCYTES % (AUTO) 7.4 % (3-13); PLATELET COUNT 317 10^3/uL (150-450); RED BLOOD COUNT 5.14 10^6/uL (4.35-5.55); RED CELL DISTRIBUTION WIDTH 14.9 % (11.5-14.0); SEGMENTED NEUTROPHILS % (AUTO) 56.2 % (42-78); TOTAL CELLS COUNTED % (AUTO) 100 %; WHITE BLOOD COUNT 8.9 10^3/uL (4.0-10.5)
--- NOTE | 2019-04-22 22:56 | RADIOLOGY REPORT (SQ) ---
XR CHEST 2 VIEWS CLINICAL STATEMENT: cp COMPARISON: 10/25/2017 FINDINGS: Cardiomediastinal silhouette is within normal limits. There is no focal lung consolidation or pleural effusion. No evidence of pulmonary edema or pneumothorax. IMPRESSION: No acute cardiopulmonary disease.
[2019-04-22 22:57] LABS: ALBUMIN 4.4 g/dL (3.5-5.0); ALKALINE PHOSPHATASE 60 U/L (38-126); ANION GAP 8 (5-19); ASPARTATE AMINO TRANSFERASE 33 U/L (17-59); BILIRUBIN,DIRECT 0.1 mg/dL (0.0-0.4); BILIRUBIN,TOTAL 0.4 mg/dL (0.2-1.3); BLOOD UREA NITROGEN 13 mg/dL (7-20); CALCIUM 9.4 mg/dL (8.4-10.2); CARBON DIOXIDE 30 mmol/L (22-30); CHLORIDE 104 mmol/L (98-107); CREATINE KINASE 156 U/L (55-170); GLUCOSE 90 mg/dL (75-110)
[2019-04-22 23:08] LABS: TROPONIN I < 0.012 ng/mL
--- NOTE | 2019-04-23 00:14 | ER Document Report ---
Doctor's Note Notes: 04/23/19 00:13 I picked up patient's chart but nurse states patient never answered when she called in the waiting room. Apparently patient eloped after he was seen at triage by the advanced advanced practice provider. His EKG does not show any acute changes. His chest x-ray is unremarkable. His lab work also shows no significa nt acute abnormalities.
[2019-04-23] MEDS ORDERED: ASPIRIN 81 MG TABLET, CHEWABLE ONE (00:41)
--- NOTE | 2019-04-23 00:41 | ER Document Report ---
ED Cardiac - General Chief Complaint: Chest Pain > 30 Stated Complaint: CHEST PAIN,DIZZINESS Time Seen by Provider: 04/22/19 22:09 Primary Care Provider: LOBITO ROBLES MD [Primary Care Provider] - Follow up as needed Mode of Arrival: Ambulatory Information source: Patient TRAVEL OUTSIDE OF THE [place] IN LAST 30 DAYS: No - HPI Notes: Patient comes in complaining of chest pain. He states it radiates across his chest. Is mild. It is been constant for 6 days. Nothing is made it better or worse. He states he did recently start a new exercise program and the pain started after this. No shortness of breath. No nausea. No sweating. He states he had a previous cardiac stress test "years ago" that was normal. No recent evaluations. - Related Data Allergies/Adverse Reactions: No Known Allergies Allergy (Verified 10/25/17 12:12) Past Medical History - General Information source: Patient - Social History Smoking Status: Never Smoker Chew tobacco use (# tins/day): No Frequency of alcohol use: Rare Drug Abuse: Marijuana Family History: Reviewed & Not Pertinent Patient has suicidal ideation: No Patient has homicidal ideation: No - Past Medical History Cardiac Medical History: Reports: Hx Hypertension Renal/ Medical History: Denies: Hx Peritoneal Dialysis Psychiatric Medical History: Denies: Hx Depression Review of Systems - Review of Systems Constitutional: denies: Chills, Fever Cardiovascular: Chest pain. denies: Palpitations Respiratory: denies: Cough, Short of breath Gastrointestinal: denies: Diarrhea, Vomiting -: Yes All other systems reviewed and negative Physical Exam - Vital signs Vitals: Temp Pulse Resp BP Pulse Ox 99.1 F 73 16 135/84 H 98 04/22/19 22:01 04/22/19 22:01 04/22/19 22:01 04/22/19 22:01 04/22/19 22:01 Interpretation: Normal - General General appearance: Appears well, Alert - HEENT Head: Normocephalic, Atraumatic Eyes: Normal Pupils: PERRL - Respiratory Respiratory status: No respiratory distress Chest status: Nontender Breath sounds: Normal Chest palpation: Normal - Cardiovascular Rhythm: Regular Heart sounds: Normal auscultation Murmur: No - Abdominal Inspection: Normal Distension: No distension Bowel sounds: Normal Tenderness: Nontender Organomegaly: No organomegaly - Back Back: Normal, Nontender - Extremities General upper extremity: Normal inspection, Nontender, Normal color, Normal ROM, Normal temperature General lower extremity: Normal inspection, Nontender, Normal color, Normal ROM, Normal temperature, Normal weight bearing. No: Subha's sign - Neurological Neuro grossly intact: Yes Cognition: Normal Orientation: AAOx4 [place]ie Coma Scale Eye Opening: Spontaneous [place] Coma Scale Verbal: Oriented [place] Coma Scale Motor: Obeys Commands [place] Coma Scale Total: 15 Speech: Normal Motor strength normal: LUE, RUE, LLE, RLE Sensory: Normal - Psychological Associated symptoms: Normal affect, Normal mood - Skin Skin Temperature: Warm Skin Moisture: Dry Skin Color: Normal Course - Re-evaluation Re-evalutation: 04/23/19 00:39 Patient presents with 6 days of constant chest pain. Based on negative enzymes unremarkable EKG and a 6-day history of constant chest pain after starting an exercise program I do not believe the patient warrants further emergency department or inpatient evaluation. I have recommended to him that he pursue outpatient cardiac evaluation. - Vital Signs Vital signs: Temp Pulse Resp BP Pulse Ox 99.1 F 73 16 135/84 H 98 04/22/19 22:01 04/22/19 22:01 04/22/19 22:01 04/22/19 22:01 04/22/19 22:01 - Laboratory Result Diagrams: 04/22/19 22:22 04/22/19 22:22 Laboratory results interpreted by ms: 04/22/19 22:22 Hgb 13.2 L MCV 78 L MCH 25.6 L RDW 14.9 H - Diagnostic Test Radiology reviewed: Image reviewed, Reports reviewed - EKG Interpretation by [place] EKG shows normal: Sinus rhythm Rate: Normal - 67 Rhythm: NSR Antonito/QRS: No: Right axis deviation, Left axis deviation Discharge - Discharge Clinical Impression: Atypical chest pain Condition: Stable Disposition: HOME, SELF-CARE Instructions: Chest Pain of Unclear Cause ([facility]) Additional Instructions: Please contact your primary care physician as soon as possible. Please discuss outpatient cardiac stress test Referrals: LOBITO ROBLES MD [Primary Care Provider] - Follow up in 3-5 days
[2019-04-23 00:56] VITALS: BP 150/94
--- NOTE | 2019-04-23 11:25 | EKG REPORT ---
SEVERITY:- NORMAL ECG - SINUS RHYTHM : Confirmed by: Orlando Davis 23-Apr-2019 11:24:59
== END 2019-04-23 00:58 | disposition home or self-care (01) ==
LOC: ER 21:43
DX: R07.89 Other chest pain (principal); I10 Essential (primary) hypertension
CPT/HCPCS: 36415; 71046; 80053; 82550; 82553; 84484; 85025; 93005; 93010; 99284